=== PATIENT | female | born 1950 | race Caucasian/White ===

== ENCOUNTER → 2016-06-17 | Day surgery (SDC) | payer MEDICARE ==
[~2016-06-17] MED LIST: DEXAMETHASONE SOD PHOS 4 MG/ML VIAL ONE; EPINEPHrine HCL (1:1000) 1 MG/ML VIAL ONE; LACTATED RINGER'S 1000 ML INJ 1,000 ML ONE; MIDAZOLAM HCL 2 MG/2 ML VIAL ONE; MOXIFLOXACIN 0.5% OPHT SOLN 3 ML BTL ONE; ONDANSETRON HCL 4 MG/2 ML VIAL IV PUSH ONE; PHENYLEPHRINE HCL 10% OPTH SOLN 5 ML BTL ONE; PROPOFOL 200 MG/20 ML AMP IV ONE; SODIUM CHLORIDE 0.9% INJ 10 ML ONE; TOBRAMYCIN/DEXAMETHASONE OPTH OINT 3.5 GM TUBE ONE; ceFAZolin INJ 1,000 MG VIAL ONE; prednisoLONE ACETATE 1% OPHT SUSP 5 ML BTL ONE
--- NOTE | 2016-06-20 09:06 | MP ---
cc: HARRY VAIL MD DATE OF SURGERY: 06/17/2016 PREOPERATIVE DIAGNOSIS: Epiretinal membrane, retinal tear, retinal edema, metamorphopsia left eye. POSTOPERATIVE DIAGNOSIS: Epiretinal membrane, retinal tear, retinal edema, metamorphopsia left eye. OPERATIVE PROCEDURE PERFORMED: Pars vitrectomy, removal of internal limiting membrane / epiretinal membrane, endolaser retinal detachment repair, 12% SF6 insertion, left eye. SURGEON: Harry Vail MD. COMPLICATIONS: None. BLOOD LOSS: Less than 1 cc. ANESTHESIA: Dr. Haas - . INDICATIONS FOR THE PROCEDURE: This is a delightful patient who presented with worsening visual acuity in her left eye. The patient was found to have a significant epiretinal membrane with anatomic retinal distortion and blurred vision. The patient was also found to have a retinal tear superiorly which was treated with laser. DESCRIPTION OF THE PROCEDURE IN DETAIL: After informed form consent was obtained, the patient elected was brought to the operating room and general anesthesia was established. The left eye was prepped and draped in sterile fashion with Betadine in the conjunctival fornix. A three port pars plana vitrectomy was established with a self-retaining infusion cannula. Core vitreous was evacuated and posterior vitreous ensured. The superior retinal tear was noted and was treated with laser and two retinal tears were also seen. The ERM/ILM complex was highlighted with ICG and removed with ILM forceps. The superior retinal tears were treated with endolaser. Scleral depressed examination revealed no untreated retinal holes, tears or detachments. Air-fluid exchange was carried out and 12% SF6 gas was instilled. The patient was brought to the recovery room in stable condition and will continue followup with [facility] for her postoperative care. MD ZAC De Oliveira/RABIA /5:39 PM /9:01 AM
== END | disposition home or self-care (01) ==
LOC: ESDC 07:23
PROVIDERS: ATTEND Ophthalmology
DX: H35.372 Puckering of macula, left eye (principal); H33.312 Horseshoe tear of retina without detachment, left eye; H35.81 Retinal edema; H53.15 Visual distortions of shape and size
CPT/HCPCS: 00145; 67043; J0171; J0690; J1100; J2250; J2405; J3010; J7120